=== PATIENT | male | born 1990 | race Two or more races ===

== ENCOUNTER 2021-09-27 11:45 | Emergency (ER) | payer SELFPAY ==
[~2021-09-27] VITALS: Ht 177.8 cm; Wt 81.6 kg
[2021-09-27] MEDS ORDERED: SODIUM CHLORIDE 0.9% 1,000 ML IVB ONE (12:15)
[2021-09-27] MEDS ORDERED: ONDANSETRON HCL 4 MG/2 ML VIAL IV ONE (12:15)
[2021-09-27 13:06] LABS: Eosinophils # (auto) 0.1 10 ^3/uL (0-0.8); Lymphocytes # (auto) 1.4 10 ^3/uL (0.4-5.4); Red Blood Cells 7.18 10^6/uL (4.5-5.90); White Blood Cell 5.6 10^3/uL (4.4-10.8)
[2021-09-27 13:07] LABS: Basophils # (auto) 0.1 10 ^3/uL (0-0.2); Basophils % (auto) 1.1 % (0.0-2.0); Eosinophils % (auto) 1.6 % (0.0-7.0); Hematocrit 50.6 % (41.0-53.0); Hemoglobin 16.7 g/dL (13.5-17.5); Mean Corpuscular Hemoglobin 23.3 pg (28.0-32.0); Mean Corpuscular Hgb Conc. 33.1 g/dL (32.0-36.0); Mean Corpuscular Volume 70.5 fL (80.0-100.0); Monocytes # (auto) 0.4 10 ^3/uL (0-1.3); Monocytes % (auto) 7.1 % (0.0-12.0); Neutrophils # (auto) 3.7 10 ^3/uL (1.6-8.6); Neutrophils % (auto) 65.2 % (37.0-80.0); Nucleated Red Blood Cells % 0.2 %; Red Cell Distribution Width 14.3 % (11.8-14.3)
[2021-09-27 13:24] LABS: BUN/Creatinine Ratio 6.2; Calcium 9.3 mg/dL (8.5-10.1); Potassium 4.2 mmol/L (3.5-5.1)
[2021-09-27 13:27] LABS: Bilirubin, Total 0.5 mg/dL (0.2-1.0); Total Protein 7.4 g/dL (6.4-8.2)
[2021-09-27 13:28] LABS: Amylase 78 U/L (25-115); Lipase 52 U/L (73-393)
[2021-09-27 14:00] VITALS: BP 136/95
[2021-09-27 14:04] LABS: Urine Bacteria NONE SEEN /hpf (None Seen); Urine Blood Negative /uL (Negative); Urine Specific Gravity 1.018 (1.001-1.035); Urine WBC 1 /hpf (0 - 3)
[2021-09-27] MEDS ORDERED: ONDA-144 PO (14:40)
[2021-09-27] MEDS ORDERED: PANT40TA2 PO (14:40)
== END 2021-09-27 15:11 | disposition home or self-care (01) ==
LOC: EEVIPCON 11:45 → ER 11:45
DX: K52.9 Noninfective gastroenteritis and colitis, unspecified (principal); Z79.899 Other long term (current) drug therapy; Z88.0 Allergy status to penicillin
CPT/HCPCS: 36415; 74176; 80053; 81001; 82150; 83690; 85025; 96361; 96374; 99284; J2405; J7030

== ENCOUNTER 2021-11-14 19:22 | Emergency (ER) | payer MEDICAID, OTHER ==
[~2021-11-14] VITALS: Ht 177.8 cm; Wt 74.8 kg
[~2021-11-14 19:22] MED LIST: ONDA-144 PO; PANT40TA2 PO
[2021-11-14 22:54] LABS: Basophils # (auto) 0.1 10 ^3/uL (0-0.2); Eosinophils # (auto) 0.1 10 ^3/uL (0-0.8); Hematocrit 51.6 % (41.0-53.0); Mean Corpuscular Hemoglobin 23.6 pg (28.0-32.0)
[2021-11-14 22:56] LABS: Basophils % (auto) 1.1 % (0.0-2.0); Eosinophils % (auto) 1.2 % (0.0-7.0); Lymphocytes # (auto) 1.6 10 ^3/uL (0.4-5.4); Lymphocytes % (auto) 21.9 % (10.0-50.0); Mean Corpuscular Hgb Conc. 32.8 g/dL (32.0-36.0); Mean Corpuscular Volume 71.8 fL (80.0-100.0); Monocytes # (auto) 0.6 10 ^3/uL (0-1.3); Monocytes % (auto) 8.7 % (0.0-12.0); Neutrophils # (auto) 4.8 10 ^3/uL (1.6-8.6); Neutrophils % (auto) 67.1 % (37.0-80.0); Nucleated Red Blood Cells % 0.3 %; Red Blood Cells 7.19 10^6/uL (4.5-5.90); Red Cell Distribution Width 14.3 % (11.8-14.3); White Blood Cell 7.2 10^3/uL (4.4-10.8)
[2021-11-14 23:06] LABS: Albumin 4.2 g/dL (3.4-5.0); Calcium 9.7 mg/dL (8.5-10.1); Potassium 3.9 mmol/L (3.5-5.1)
[2021-11-14 23:09] LABS: BUN/Creatinine Ratio 9.5; Bilirubin, Total 0.6 mg/dL (0.2-1.0); Total Protein 7.6 g/dL (6.4-8.2)
[2021-11-14 23:30] VITALS: BP 135/84
== END 2021-11-15 01:47 | disposition home or self-care (01) ==
LOC: EEVIPCON 19:22 → ER 19:22
DX: K29.70 Gastritis, unspecified, without bleeding (principal); Z88.0 Allergy status to penicillin
CPT/HCPCS: 36415; 76705; 80053; 83690; 85025

== ENCOUNTER 2023-01-12 00:12 | Emergency (ER) | payer MEDICAID ==
[~2023-01-12] VITALS: Ht 175.3 cm; Wt 81.4 kg
[2023-01-12] MEDS ORDERED: ONDANSETRON HCL 4 MG/2 ML VIAL IV ONE (00:30)
[2023-01-12] MEDS ORDERED: SODIUM CHLORIDE 0.9% 1,000 ML IV ONE (00:30)
[2023-01-12] MEDS ORDERED: HYDROmorphone HCL 2 MG/ML VL/or syr IV ONE (00:45)
[2023-01-12 00:59] LABS: Basophils # (auto) 0.1 10 ^3/uL (0-0.2); Eosinophils # (auto) 0.2 10 ^3/uL (0-0.8); Neutrophils # (auto) 3.4 10 ^3/uL (1.6-8.6); Nucleated Red Blood Cells % 0.2 %; Red Blood Cells 7.09 10^6/uL (4.5-5.90)
[2023-01-12 01:01] LABS: Basophils % (auto) 1.4 % (0.0-2.0); Eosinophils % (auto) 2.9 % (0.0-7.0); Hematocrit 51.4 % (41.0-53.0); Hemoglobin 16.3 g/dL (13.5-17.5); Lymphocytes # (auto) 3.4 10 ^3/uL (0.4-5.4); Lymphocytes % (auto) 43.5 % (10.0-50.0); Mean Corpuscular Hemoglobin 22.9 pg (28.0-32.0); Mean Corpuscular Hgb Conc. 31.7 g/dL (32.0-36.0); Mean Corpuscular Volume 72.4 fL (80.0-100.0); Monocytes # (auto) 0.6 10 ^3/uL (0-1.3); Monocytes % (auto) 7.9 % (0.0-12.0); Neutrophils % (auto) 44.3 % (37.0-80.0); Red Cell Distribution Width 14.8 % (11.8-14.3); White Blood Cell 7.8 10^3/uL (4.4-10.8)
[2023-01-12 01:16] LABS: Albumin 3.9 g/dL (3.4-5.0); BUN/Creatinine Ratio 6.7 (10.0-20.0); Calcium 9.3 mg/dL (8.5-10.1); Potassium 4.3 mmol/L (3.5-5.1)
[2023-01-12 01:19] LABS: Bilirubin, Total 0.2 mg/dL (0.2-1.0); Total Protein 7.1 g/dL (6.4-8.2)
[2023-01-12] MEDS ORDERED: ZOFR4T PO (02:59)
[2023-01-12] MEDS ORDERED: METR375C PO (02:59)
[2023-01-12] MEDS ORDERED: CIPR-173 PO (02:59)
[2023-01-12] MEDS ORDERED: PERCOT PO (02:59)
[2023-01-12] MEDS ORDERED: cefTRIAXone 1GM/50ML D5W 50 ML IV ONE (03:00)
[2023-01-12 03:50] VITALS: BP 126/85; PULSE 57; RESP 18; TEMP 98.1; O2SAT 96
[2023-01-18] MEDS ORDERED: PERCOT PO (00:26)
[2023-01-19] MEDS ORDERED: FAMO20TA10 PO (01:06)
== END 2023-01-12 04:00 | disposition home or self-care (01) ==
LOC: ER 00:15 → EEVIPCON 00:15 → ER 04:00
DX: K52.9 Noninfective gastroenteritis and colitis, unspecified (principal); R51.9 Headache, unspecified; Z88.0 Allergy status to penicillin
CPT/HCPCS: 36415; 70450; 71045; 74176; 80053; 83690; 85025; 96361; 96365; 96375; 99285; J0696; J1170; J2405; J7030

== ENCOUNTER 2023-01-28 16:37 | Emergency (ER) | payer MEDICAID ==
[~2023-01-28] VITALS: Ht 175.3 cm; Wt 76.4 kg
[~2023-01-28 16:37] MED LIST changes: +CIPR-173 PO; +FAMO20TA10 PO; +METR375C PO; +PERCOT PO; +ZOFR4T PO
[2023-01-28 16:40] VITALS: BP 136/91; PULSE 62; RESP 18; O2SAT 99
[2023-01-28] MEDS ORDERED: METO-281 PO (17:14)
== END 2023-01-28 17:55 | disposition home or self-care (01) ==
LOC: ER 16:37
DX: R11.2 Nausea with vomiting, unspecified (principal); R10.13 Epigastric pain; Z88.0 Allergy status to penicillin

== ENCOUNTER 2023-02-17 00:35 | Emergency (ER) | payer MEDICAID ==
[~2023-02-17] VITALS: Ht 175.3 cm; Wt 77.2 kg
[~2023-02-17 00:35] MED LIST changes: +METO-281 PO
[2023-02-17 01:15] LABS: Alanine Aminotransferase 21 U/L (7-40); Albumin 4.5 g/dL (3.2-4.8); Alkaline Phosphatase 72 U/L (46-116); Anion Gap 5.8 (5-15); Aspartate Aminotransferase < 8 U/L (13-40); BUN/Creatinine Ratio 4.1 (10.0-20.0); Basophils # (auto) 0 10 ^3/uL (0-0.2); Basophils % (auto) 0.8 % (0.0-2.0); Blood Urea Nitrogen 5 mg/dL (9-23); Calcium 9.6 mg/dL (8.7-10.4); Carbon Dioxide 27.2 mmol/L (20-30); Chloride 105 mmol/L (98-107); Eosinophils # (auto) 0.1 10 ^3/uL (0-0.8); Eosinophils % (auto) 0.9 % (0.0-7.0); Glucose 82 mg/dL (74-106); Hematocrit 52.5 % (41.0-53.0); Hemoglobin 16.7 g/dL (13.5-17.5); Lymphocytes # (auto) 2.2 10 ^3/uL (0.4-5.4); Lymphocytes % (auto) 34.9 % (10.0-50.0); Mean Corpuscular Hgb Conc. 31.8 g/dL (32.0-36.0); Mean Corpuscular Volume 72.1 fL (80.0-100.0); Monocytes # (auto) 0.9 10 ^3/uL (0-1.3); Monocytes % (auto) 14.8 % (0.0-12.0); Neutrophils # (auto) 3.1 10 ^3/uL (1.6-8.6); Neutrophils % (auto) 48.6 % (37.0-80.0); Nucleated Red Blood Cells % 0.2 %; Potassium 3.8 mmol/L (3.5-5.1); Red Blood Cells 7.27 10^6/uL (4.5-5.90); Red Cell Distribution Width 14.6 % (11.8-14.3); Sodium 138 mmol/L (136-145); White Blood Cell 6.3 10^3/uL (4.4-10.8)
[2023-02-17 01:16] LABS: Bilirubin, Total 0.5 mg/dL (0.2-1.0)
[2023-02-17 01:55] LABS: Urine Bacteria NONE SEEN /hpf (None Seen); Urine Blood Negative /uL (Negative); Urine Clarity Clear (Clear); Urine Color Colorless (Yellow); Urine Protein, UAD Negative (Negative); Urine Specific Gravity 1.009 (1.001-1.035); Urine Urobilinogen Normal (Negative); Urine WBC 3 /hpf (0 - 3); Urine pH 5.5 (5.0-8.0)
[2023-02-17] MEDS ORDERED: KETOROLAC TROMETH 60MG/2ML VIAL IM ONE (03:45)
[2023-02-17 03:59] VITALS: BP 140/85; PULSE 68; RESP 18; TEMP 97.5
[2023-02-17 04:10] VITALS: O2SAT 97
== END 2023-02-17 04:10 | disposition home or self-care (01) ==
LOC: ER 00:44 → EEVIPCON 00:44 → ER 04:10
DX: R09.1 Pleurisy (principal); Z79.2 Long term (current) use of antibiotics; Z79.899 Other long term (current) drug therapy; Z88.0 Allergy status to penicillin
CPT/HCPCS: 36415; 71045; 80053; 81001; 84484; 85025; 93005; 96372; 99285; J1885

== ENCOUNTER 2025-05-10 10:10 | Emergency (ER) | payer MEDICAID ==
[~2025-05-10] VITALS: Ht 175.3 cm; Wt 75.4 kg
[2025-05-10 10:15] VITALS: BP 148/96; PULSE 74; RESP 16; TEMP 98.3; O2SAT 97
--- NOTE | 2025-05-10 10:37 | ED.PDOC ---
History of Present Illness HPI Comments 34 y/o M presents with c/c of nonradiating, RUQ abdominal pain, nausea, and vomiting. Patient reports onset of symptoms after eating [id number] entree at [employer] restaurant 2x days ago. He comments on being unable to hold any food or liquids down and having 4/10 pain after vomiting, immediately. Patient also states on having 1x isolated episode of diarrhea, yesterday, that resolved on its own. He denies any bloody or bilious vomitus, diarrhea, constipation, or further acute symptoms. No endorsed recent sick contacts, spoiled food consumption, injuries, or significant medical or surgical history. Notable recent history of endoscopy performed at [facility] 2x months ago. Social history of occasional alcohol and marijuana use and family history of hypertension. Chief Complaint: Nausea/Vomiting Time Seen by MD: 10:20 Primary Care Provider: UNKNOWN Reviewed Notes: Nurses Notes, Medications, Allergies Allergies: Coded Allergies: Penicillins (Verified Allergy, Severe, 09/27/21) Home Meds Active Scripts Ondansetron Odt 4MG Tab (ZOFRAN PO) 4 Mg Tb, 4 MG PO Q8HP PRN for 5 Days, #15 TAB ODT TAB-DISSOLVE IN MOUTH, THEN SWALLOW Prov:BERKLEY ANDERSON MD 05/10/25 Pantoprazole Sodium Sesquihydr (Protonix) 40 Mg Tab, 40 MG PO DAILY, #30 TAB Prov:BERKLEY ANDERSON MD 05/10/25 Ondansetron Odt 4MG Tab (ZOFRAN PO) 4 Mg Tb, 4 MG PO Q6HP PRN, #30 TAB ODT TAB-DISSOLVE IN MOUTH, THEN SWALLOW Prov:WICHO CABRERA DO 04/13/23 Metoclopramide Hcl (Reglan) 10 Mg Tab, 10 MG PO Q8HP PRN, #20 TAB Prov:SUMIT SRINIVASAN PAC 01/28/23 Famotidine (PEPCID TABLET) 20 Mg Tb, 1 TAB PO BID for 7 Days, #14 TAB 0 Refills Prov:CYNTHIA TRINIDAD MD 01/19/23 Oxycodone W/ Acetaminophen (Percocet 5/325MG) 1 Tab Tb, 1 TAB PO BID for 7 Days, #14 TAB Prov:CYNTHIA TRINIDAD MD 01/18/23 Ondansetron Odt 4MG Tab (ZOFRAN PO) 4 Mg Tb, 4 MG PO BID for 7 Days, #14 TAB ODT TAB-DISSOLVE IN MOUTH, THEN SWALLOW Prov:CYNTHIA TRINIDAD MD 01/12/23 Ciprofloxacin Hcl (Cipro) 500 Mg Tab, 500 MG PO BID for 7 Days, #14 TAB Prov:CYNTHIA TRINIDAD MD 01/12/23 Oxycodone W/ Acetaminophen (Percocet 5/325MG) 1 Tab Tb, 1 TAB PO BID for 7 Days, #14 TAB Prov:CYNTHIA TRINIDAD MD 01/12/23 Metronidazole (Flagyl) 375 Mg Cap, 375 MG PO BID for 7 Days, #14 CAP Prov:CYNTHIA TRINIDAD MD 01/12/23 Ondansetron (Zofran) 4 Mg Tab, 1 TAB PO Q6HR, #20 TAB Prov:BERKLEY ANDERSON MD 09/27/21 Pantoprazole Sodium Sesquihydr (Protonix) 40 Mg Tab, 40 MG PO DAILY, #30 TAB Prov:BERKLEY ANDERSON MD 09/27/21 Information Source: Patient Mode of Arrival: Ambulatory Severity: Moderate Timing: Months Duration: Since onset Prehospital treatment: None Past Medical History PAST MEDICAL HISTORY: Denies Surgical History (Other): endoscopy 2x months Family History Family History: No family hx of Cancer, No family hx of DM, No family hx of Heart edith Social History Smoker: Non-Smoker Alcohol: Occasionally Drugs: Denies Drug Use Lives In: Home Physical Exam General Appearance: No Apparent Distress HEENT: Normal ENT Inspection, Pharynx Normal, TMs Normal Neck: Full Range of Motion, Non-Tender, Normal, Normal Inspection Respiratory: Chest Non-Tender, Lungs Clear, No Accessory Muscle Use, No Respiratory Distress, Normal Breath Sounds Cardiovascular: No Edema, No JVD, No Murmur, No Gallop, Normal Peripheral Pulses, Regular Rate/Rhythm Breast Exam: Deferred Gastrointestinal: No Organomegaly, Non Tender, No Pulsatile Mass, Normal Bowel Sounds, Soft Genitalia: Deferred Pelvic: Deferred Rectal: Deferred Extremities: No calf tenderness, Normal capillary refill, Normal inspection, Normal range of motion, Non-tender, No pedal edema Musculoskeletal : Apperance: Normal Neurologic: Alert, sports equipment repairer II-XII nml as Tested, No Motor Deficits, Normal Affect, Normal Mood, No Sensory Deficits Cerebellar Function: Normal Reflexes: Normal Skin: Dry, Normal Color, Warm Lymphatic: No Adenopathy Was a procedure done? Was a procedure done?: No Differential Dx Considerations may include: gastritis, gastroenteritis, cholelithiasis, cholecystitis, GERD, viral, spoiled food, among others X-Ray, Labs, Meds, VS Vital Signs Date Time Temp Pulse Resp B/P (MAP) Pulse Ox O2 Delivery O2 Flow Rate FiO2 05/10/25 10:15 98.3 74 16 148/96 97 98.3 Lab Test 05/10/25 10:32 Range/Units White Blood Count 7.1 4.4-10.8 10^3/uL Red Blood Count 7.26 H 4.5-5.90 10^6/uL Hemoglobin 17.1 13.5-17.5 g/dL Hematocrit 52.4 41.0-53.0 % Mean Corpuscular Volume 72.1 L 80.0-100.0 fL Mean Corpuscular Hemoglobin 23.6 L 28.0-32.0 pg Mean Corpuscular Hemoglobin Concent 32.7 32.0-36.0 g/dL Red Cell Distribution Width 14.5 H 11.8-14.3 % Platelet Count 228 140-450 10^3/uL Mean Platelet Volume 7.2 6.9-10.8 fL Neutrophils (%) (Auto) 60.4 37.0-80.0 % Lymphocytes (%) (Auto) 28.4 10.0-50.0 % Monocytes (%) (Auto) 8.8 0.0-12.0 % Eosinophils (%) (Auto) 1.8 0.0-7.0 % Basophils (%) (Auto) 0.6 0.0-2.0 % Neutrophils # (Auto) 4.3 1.6-8.6 10 ^3/uL Lymphocytes # (Auto) 2.0 0.4-5.4 10 ^3/uL Monocytes # (Auto) 0.6 0-1.3 10 ^3/uL Eosinophils # (Auto) 0.1 0-0.8 10 ^3/uL Basophils # (Auto) 0 0-0.2 10 ^3/uL Nucleated Red Blood Cells 0.1 % Sodium Level 144 136-145 mmol/L Potassium Level 4.5 3.5-5.1 mmol/L Chloride Level 109 H 98-107 mmol/L Carbon Dioxide Level 30 20-31 mmol/L Anion Gap 5 5-15 Blood Urea Nitrogen 11 9-23 mg/dL Creatinine 1.24 0.700-1.30 mg/dL Glomerular Filtration Rate Calc 79 >90 mL/min BUN/Creatinine Ratio 8.9 L 10.0-20.0 Serum Glucose 94 74-106 mg/dL Calcium Level 9.7 8.7-10.4 mg/dL Lipase 34 12-53 U/L Current Medications Medications (Trade) Dose Ordered Sig/Juan Carlos Route Start Time Stop Time Status Last Admin Sodium Chloride 1,000 ml @ 1,000 mls/hr Q1H ONCE IV 05/10/25 10:30 05/10/25 11:29 DC 05/10/25 10:55 Prochlorperazine Edisylate (Compazine Inj) 10 mg ONCE ONCE IV 05/10/25 10:30 05/10/25 10:31 DC 05/10/25 11:11 Pantoprazole Sodium (Protonix) 40 mg ONCE ONCE IV 05/10/25 10:30 05/10/25 10:31 DC 05/10/25 11:11 The patient's CBC and chemistry panel are within normal limits The patient was given Protonix 40 mg IV push The patient was given Compazine 10 mg IV push The patient was given a 1 L bolus of normal saline The patient is unable to give us any urine at this time The patient is being discharged and will follow up with his primary care doctor The patient will return to the emergency department's the condition worsens. The patient understands and agrees with the management. Time of 1ST Reevaluation: 10:50 Reevaluation 1ST: Unchanged Time of 2ND Reevaluation: 11:42 Reevaluation 2ND: Improved Patient Education/Counseling: Diagnosis, Treatment, Prognosis, Need For Follow Up Family Education/Counseling: No Family Present SEPSIS Sepsis Screen Date sepsis recognized/suspect: May 10, 2025 Time Sepsis recognized/suspect: 1017 Recent Procedure: No On Antibiotic Therapy: No Respiratory Rate >20: No Heart Rate >90: No Temp<36 C (96.8 F) or >38.3 C: No SBP <90 or MAP <65 mmHG: No New Acute Mental Status Change: No Is the patient on CPAP, BIPAP,: No Physician Orders Urinalysis (05/10/25 10:23) Heplock Iv (05/10/25 10:23) Vital Signs Date Time Temp Pulse Resp B/P (MAP) Pulse Ox O2 Delivery O2 Flow Rate FiO2 05/10/25 10:15 98.3 74 16 148/96 97 98.3 Laboratory Tests Test 05/10/25 10:32 White Blood Count 7.1 10^3/uL (4.4-10.8) Medications Medications Dose Ordered Sig/Juan Carlos Route Start Time Stop Time Status Last Admin Dose Admin Pantoprazole Sodium 40 mg ONCE ONCE IV 05/10/25 10:30 05/10/25 10:31 DC 05/10/25 11:11 Prochlorperazine Edisylate 10 mg ONCE ONCE IV 05/10/25 10:30 05/10/25 10:31 DC 05/10/25 11:11 Sodium Chloride 1,000 ml @ 1,000 mls/hr Q1H ONCE IV 05/10/25 10:30 05/10/25 11:29 DC 05/10/25 10:55 Departure 1 Departure Time of Disposition: 11:41 Impression: Primary Impression: Nausea and vomiting in adult Additional Impression: Recurrent vomiting Disposition: 01 HOME / SELF CARE / HOMELESS Condition: Fair e-Prescriptions Ondansetron Odt 4MG Tab (ZOFRAN PO) 4 Mg Tb 4 MG PO Q8HP PRN for 5 Days, #15 TAB ODT TAB-DISSOLVE IN MOUTH, THEN SWALLOW Prov: BERKLEY ANDERSON MD 05/10/25 Pantoprazole Sodium Sesquihydr (Protonix) 40 Mg Tab 40 MG PO DAILY, #30 TAB Prov: BERKLEY ANDERSON MD 05/10/25 Discharged With: Self Critical Care Note Critical Care Time?: No Stability Stability form required: No Heart Score Heart Score: Heart Score Response (Comments) Value History N/A 0 EKG N/A 0 Age N/A 0 Risk Factors N/A 0 Troponin N/A 0 Total 0 I personally scribed for BERKLEY ANDERSON MD ([email or web address]) on 05/10/25 at 10:37. Electronically submitted by Cameron Alexander [email or web address]). BERKLEY ANDERSON MD May 10, 2025 10:37
[2025-05-10] MEDS: SODIUM CHLORIDE 0.9% 1,000 ML IV ONE (10:55)
[2025-05-10] MEDS ORDERED: ZOFR4T PO (10:57)
[2025-05-10 10:59] LABS: Mean Corpuscular Volume 72.1 fL (80.0-100.0); Nucleated Red Blood Cells % 0.1 %
[2025-05-10 11:00] LABS: Hematocrit 52.4 % (41.0-53.0); Hemoglobin 17.1 g/dL (13.5-17.5); Mean Corpuscular Hemoglobin 23.6 pg (28.0-32.0)
[2025-05-10] MEDS: PANTOPRAZOLE 40 MG/10 ML VIAL INJ IV ONE (11:11)
[2025-05-10] MEDS: PROCHLORPERAZINE EDISYLATE 5 MG/ML 2ML VIAL IV ONE (11:11)
[2025-05-10 11:12] LABS: Potassium 4.5 mmol/L (3.5-5.1); Sodium 144 mmol/L (136-145)
[2025-05-10 11:13] LABS: Anion Gap 5 (5-15); Calcium 9.7 mg/dL (8.7-10.4); Carbon Dioxide 30 mmol/L (20-31)
[2025-05-10 11:14] LABS: Chloride 109 mmol/L (98-107)
[2025-05-10 11:18] LABS: BUN/Creatinine Ratio 8.9 (10.0-20.0); Blood Urea Nitrogen 11 mg/dL (9-23); Glucose 94 mg/dL (74-106); Lipase 34 U/L (12-53)
== END 2025-05-10 12:24 | disposition home or self-care (01) ==
LOC: ER 10:10
DX: R11.2 Nausea with vomiting, unspecified (principal); R10.11 Right upper quadrant pain; E86.0 Dehydration; F12.90 Cannabis use, unspecified, uncomplicated; Z88.0 Allergy status to penicillin; Z79.891 Long term (current) use of opiate analgesic
CPT/HCPCS: 36415; 80048; 83690; 85025; 96361; 96374; 96375; 99284; J0780; J2470; J7030